=== PATIENT | female | born 1970 | race African-American/Black ===

== ENCOUNTER 2018-12-20 08:42 | Emergency (ER) | payer OTHER ==
[2018-12-20 08:56] VITALS: BP 141/71; PULSE 87; TEMP 98.1; BMI 30.9
--- NOTE | 2018-12-20 09:01 | PDOC ---
History of Present Illness - General Chief Complaint: CVA/TIA Stated Complaint: CVA/TIA Time Seen by Provider: 12/20/18 08:59 History Source: Patient Exam Limitations: No Limitations - History of Present Illness Initial Comments: 12/20/18 09:35 48 yo F with PMhx of TIA approx 10 yrs ago presents with one day history of broken speech. She states that yesterday at work she was taking to someone when she found herself mumbling words it only occurred for brief second and returned to normal . She did not think anything of it because it resolved fairly quickly and went home, ate dinner and went to sleep. This morning she woke up and was talking on the phone when the same thing occurred again which prompted trip to ER. This only occurred for few words and person she was speaking with did not even notice. 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 She has been on ASA and Lisinopril since then. One month ago she had complete cardiac workup including carotid US and was told everything was fine and was cleared for breast reduction surgery. Surgery went well with no complications. She admits to being under significant stress at work and has not been sleeping well at night. She denies CP,PRECIADO, SOB, palpitations, nausea, vomiting, fever or chills. Past History - Travel Traveled outside of the country in the last 30 days: No Close contact w/someone who was outside of country & ill: No - Past Medical History Allergies/Adverse Reactions: Allergies Allergy/AdvReac Type Severity Reaction Status Date / Time No Known Allergies Allergy Verified 12/20/18 08:44 Home Medications: Ambulatory Orders Aspirin 81 mg PO DAILY 12/20/18 Lisinopril [Zestril] 2.5 mg PO DAILY 12/20/18 CVA: Yes (TIA 2009) COPD: No HTN: Yes - Family Disease History Family Disease History: Diabetes: Father, Heart Disease: Mother - Suicide/Smoking/Psychosocial Hx Have you felt down, depressed or hopeless?: No Have you felt little interest or pleasure in doing things?: No Have you had or do you have any thoughts to hurt yourself?: No Have you had or do you have any thoughts to hurt others?: No Smoking Status: No Smoking History: Never smoked Have you smoked in the past 12 months: No Information on smoking cessation initiated: No Hx Alcohol Use: No Drug/Substance Use Hx: No Lives with/in: single parent(s) Neuro Specific PMHX - Complaint Specific PMHX TIA: Yes Review of Systems - Review of Systems Able to Perform ROS?: Yes Is the patient limited Indonesian proficient: No *Physical Exam - Vital Signs Last Vital Signs Temp Pulse Resp BP Pulse Ox 98.1 F 87 18 141/71 100 12/20/18 08:45 12/20/18 08:45 12/20/18 08:45 12/20/18 08:45 12/20/18 08:45 NIH Stroke Scale - Last Known Well Date/Time & Onset Date Last Known Well: 12/19/18 Time Last Known Well: 12:00 - Initial Evaluation Level of consciousness: Alert Ask patient the month and their age: Answers both correctly Ask patient to open & close eyes; make fist and let go: Obeys both correctly Best gaze (horizontal eye movement): Normal Visual field testing: No visual field loss Facial paresis (Show teeth/raise eyebrows/close eyes tight): Normal symmetrical movement Motor Function: Left Arm: Normal Motor Function: Right Arm: Normal (extends arm 90 (or 45) degrees for 10 seconds without drift Motor Function: Left Leg: Normal (extends leg 30 degrees for 5 seconds without drift) Motor Function: Right Leg: Normal (extends leg 30 degrees for 5 seconds without drift) Limb Ataxia: No ataxia Sensory(Use pinprick test arms,legs,trunk,face/side to side): Normal Best language (Describe picture, name items, read sentences): No Aphasia Dysarthria (read several words): Normal articulation Extinction and Inattention: No abnormality - Total Score NIH Stroke Scale Score: 0 TIA Risk Factors - ABCD Score Age: Age < 60 Blood Pressure: SBP < 140 and DBP < 90 Clinical Features of TIA: Speech impair w/o uni wk Duration: TIA duration = or > 60min Diabetes: No Total ABCD2 Score (0-7):: 3 Critical Care Time/MDM Note - Medical Decision Making Note: 12/20/18 11:24 48 yo F with PMhx of TIA approx 10 yrs ago presents with one day history of broken speech. Based off history there is low suspition for TIA. However will send for CBC, CMP,UA and non contrast CT. Will contact neurologist and discuss presentation and follow recommendations. 12/20/18 11:[address] are negative for acute CVA. Spoke with Dr. Tushar Rodriguez at [facility] who said low suspicion for TIA and he is ok with discharge with follow up in his office.Symptoms most likely stress related. Will discharge home with follow up with Neurology and PCP next week. *DC/Admit/Observation/Transfer Diagnosis at time of Disposition: Stress at work, Dysarthria - Discharge Dispostion Disposition: HOME Condition at time of disposition: Stable Decision to Admit order: No - Referrals - Patient Instructions Printed Discharge Instructions: Get a Handle on Stress with Physical Fitness Additional Instructions: Increase activity as tolerated. Resume regular diet. Follow up with Neurology and PCP next week. If symptoms return or you experience stroke like symptoms please return to ER immediately. - Post Discharge Activity Forms/Work/School Notes: Back to Work
--- NOTE | 2018-12-20 09:21 | PDOC ---
Attending Attestation - Resident Resident Name: Juan Varma - ED Attending Attestation I have performed the following: I have examined & evaluated the patient, The case was reviewed & discussed with the resident, I agree w/resident's findings & plan, Exceptions are as noted - HPI HPI: 12/20/18 09:51 48y F hx of vertebral artery dissection 10 yrs ago, ?htn (on lisinopril), presents with complaint of 2 brief episodes of dysarthria lasting for seconds. Pt describes her words as coming out slurred/mumbled = these epsiodes were very brielf lasting seconds then resolving. Pt dneis any focal complaints including vision changes, headache, neck pain, back pain, numbness/tingling/weakness. Symptoms have since resolved. Pt denies any other complaints including palpitations, n/v, abd pain, dysuria, diarrhea, melena, bpr. - Physicial Exam PE: 12/20/18 11:22 GENERAL: The patient is awake, alert, and fully oriented, Nontoxic - in no acute distress. HEAD: Normocephalic, atraumatic. EYES: extraocular movements intact, sclera anicteric, conjunctiva clear. ENT: Normal voice, Moist mucous membranes. NECK: Normal range of motion, supple LUNGS: Breath sounds equal, clear to auscultation bilaterally. No wheezes, no rhonchi, no rales. HEART: Regular rate and rhythm, normal S1 and S2 without murmur, rub or gallop. ABDOMEN: Soft, nontender, normoactive bowel sounds. No guarding, no rebound. . No CVA tenderness EXTREMITIES: Normal range of motion, no edema. No clubbing or cyanosis. No cords, erythema, or tenderness. NEUROLOGICAL: No facial assymetry, Normal speech, PSYCH: Normal mood, normal affect. SKIN: Warm, Dry, normal turgor, NEURO: Mental status: The patient is oriented x3. Cranial nerves: Cranial nerves II through XII are intact Motor: The upper extremities are 5 over 5 in all muscle groups. The lower extremities are 5 over 5 in all muscle groups. Negative pronator drift Sensation: Sensation is intact to light touch throughout. romberg negative Cerebellar: Kvyxup-nsofdz-rmca is normal in both upper extremities. Heel-knee- thurston is normal in both lower extremities. rapid alternating movements are normal. Reflexes: 2+ and symmetric in the upper and lower extremities. Gait: Normal. Heel and toe walking are normal. Tandem gait is normal. - Medical Decision Making 12/20/18 11:22 Low suspicion for TIA due to previous numbness of the episode We'll obtain CT, blood work will discuss with her neurologist regarding disposition 12/20/18 12:07 The patient's blood work was reviewed is unremarkable CT head was negative Suspect that her symptoms may be stress/fatigue related as the patient notes that she has not been sleeping very well case dw her neurologist - will have her fu with him as outpatient return precautions were discussed I discussed the physical exam findings, ancillary test results and final diagnoses with the patient. I answered all of the patient's questions. The patient was satisfied with the care received and felt comfortable with the discharge plan and treatment plan. The patient will call their primary care physician within 24 hours to arrange follow-up and will return to the Emergency Department with any new, persistent or worsening symptoms. Heart Score/ECG Review - ECG Impressions Comment:: 12/20/18 11:22 Twelve-lead EKG was performed and reviewed by me. There is normal sinus rhythm with a normal rate. rate of 76 The axis is normal. The intervals are normal. There is normal R wave progression There are no ST or T wave abnormalities. Impression: Normal twelve-lead EKG
[2018-12-20] MEDS ORDERED: SODIUM CHLORIDE 1,000 ML IV STA (10:01)
[2018-12-20 10:39] LABS: BASO % 3.7 % (0-2.0); EOS % 2.9 % (0-4.5); HEMATOCRIT 42.3 % (32.4-45.2); HEMOGLOBIN 13.9 GM/dL (10.7-15.3); MCH 28.3 pg (25.7-33.7); MCHC 32.9 g/dl (32.0-36.0); MEAN PLT VOLUME 8.7 fl (7.5-11.1); MONO % 5.5 % (3.8-10.2); NEUT % 62.9 % (42.8-82.8); PLATELET COUNT 308 K/MM3 (134-434); RBC 4.92 M/mm3 (3.60-5.2); WHITE BLOOD COUNT 4.1 K/mm3 (4.0-10.0)
[2018-12-20 11:06] LABS: HCG,QUALITATIVE URINE Negative
[2018-12-20 11:07] LABS: EPI CELLS 4.1 /HPF (0-5/HPF); URINE APPEARANCE CLEAR; URINE BILIRUBIN NEGATIVE (NEGATIVE); URINE CASTS 1 /lpf (0-8); URINE COLOR YELLOW; URINE GLUCOSE (UA) NEGATIVE (NEGATIVE); URINE KETONE NEGATIVE (NEGATIVE); URINE LEUK ESTERASE 2+ (NEGATIVE); URINE NITRITE NEGATIVE (NEGATIVE); URINE PROTEIN NEGATIVE (NEGATIVE); URINE RBC 1 /hpf (0-4); URINE UROBILINOGEN 0.2 mg/dL (0.2-1.0); URINE WBC 5 /hpf (0-5)
[2018-12-20 11:12] LABS: ALBUMIN 3.6 g/dl (3.4-5.0); BILIRUBIN,TOTAL 0.4 mg/dL (0.2-1); CALCIUM 9.8 mg/dL (8.5-10.1); CREATININE 0.8 mg/dL (0.55-1.3); POTASSIUM 4.2 mmol/L (3.5-5.1); TOT PROT 7.2 g/dl (6.4-8.2)
--- NOTE | 2018-12-21 14:49 | EKG ---
Test Reason : Blood Pressure : / mmHG Vent. Rate : 076 BPM Atrial Rate : 076 BPM P-R Int : 152 ms QRS Dur : 076 ms QT Int : 376 ms P-R-T Axes : 049 022 036 degrees QTc Int : 423 ms NORMAL SINUS RHYTHM NORMAL ECG NO PREVIOUS ECGS AVAILABLE Confirmed by TYRA SANTIAGO MD ([id number]) on 12/21/2018 2:48:50 PM Referred By: Confirmed By:TYRA SANTIAGO MD
== END 2018-12-20 12:29 | disposition home or self-care (01) ==
LOC: JER 08:42
PROC: 3E0337Z Introduction of Electrolytic and Water Balance Substance into Peripheral Vein, Percutaneous Approach (ICD-10-PCS; principal; 2018-12-20)
DX: R47.1 Dysarthria and anarthria (principal); Z56.3 Stressful work schedule; Z56.6 Other physical and mental strain related to work
CPT/HCPCS: 36415; 70450-TC; 80053; 81003; 84703; 85025; 93005; 93010; 99283-25; J7030